=== PATIENT | female | born 1965 | race Caucasian/White ===

== ENCOUNTER 2018-05-05 23:38 | Emergency (ER) | payer BC ==
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
== END 2018-05-06 02:17 | disposition home or self-care (01) ==
LOC: ER 23:38
DX: S02.2XXA Fracture of nasal bones, initial encounter for closed fracture (principal); S20.212A Contusion of left front wall of thorax, initial encounter; I10 Essential (primary) hypertension; E11.9 Type 2 diabetes mellitus without complications; Z98.890 Other specified postprocedural states; Y04.8XXA Assault by other bodily force, initial encounter; Y93.89 Activity, other specified; Y92.89 Other specified places as the place of occurrence of the external cause; Y99.8 Other external cause status
CPT/HCPCS: 99284; 96372; 70486; 71250; 90715; J0696; J2001; Z7502